=== PATIENT | male | born 1960 | race Caucasian/White ===

== ENCOUNTER 2024-07-20 18:31 | Emergency (ER) | payer SELFPAY ==
--- NOTE | ~2024-07-20 | CT_ITS ---
History: Seizure PROCEDURE: CT head without contrast. COMPARISON: None TECHNIQUE: Axial imaging of the head performed from the skull base to the vertex without IV contrast. Sagittal a nd coronal reformations obtained. DLP: 681 mGy-cm FINDINGS: The ventricles are normal in size, shape and position. There is no mass, mass effect or midline shift. There is no abnormal extra-axial fluid collection or intracranial hemorrhage. Visualized paranasal sinuses are clear. The mastoid air cells are well aerated. No acute displaced fractures within the overlying cranium. Impression: No acute intracranial hemorrhage or suspicious mass effect. Reviewed, dictated and finalized at location A. Impression: No acute intracranial hemorrhage or suspicious mass effect.
[2024-07-20 18:31] VITALS: PULSE 105; RESP 15; O2SAT 100
--- NOTE | 2024-07-20 18:37 | ECG_ITS ---
Test Date: 2024-07-20 18:47:27 Measurements Intervals [place] Rate: 95 P: 50 NV: 126 QRS: 26 QRSD: 111 T: 32 QT: 354 QTc: 445 Interpretive Statements SINUS RHYTHM POSSIBLE LEFT ATRIAL ENLARGEMENT INTRAVENTRICULAR CONDUCTION DELAY NONSPECIFIC T-WAVE ABNORMALITY- DIFFUSE LEADS BASELINE ARTIFACT- I, II, AVR BORDERLINE ECG No previous ECG available for comparison Electronically Signed On 07-20-2024 20:26:41 CDT by Aaron Lyle D.O.
[2024-07-20 18:42] LABS: Glucose Point of Care 70 mg/dl (65-105)
[2024-07-20 18:45] VITALS: O2SAT 97
[2024-07-20 18:47] VITALS: BP 166/98; PULSE 98; RESP 19; TEMP 36.8; O2SAT 96
[2024-07-20 18:59] LABS: Basophils Absolute Auto 0.1 K/mm3 (0.0-0.1); Basophils Percent Auto 0.6 % (0.2-1.2); Eosinophils Absolute Auto 0.2 K/mm3 (0-0.3); Eosinophils Percent Auto 1.8 % (0-4.4); Hematocrit 49.5 % (42.0-52.0); Hemoglobin 16.9 g/dL (14.0-18.0); Immature Granulocyte Absolute 0.07 K/mm3 (0.00-0.031); Immature Granulocyte Percent A 0.6 % (0-0.5); Lymphocytes Absolute Auto 4.18 K/mm3 (0.9-3.2); Lymphocytes Percent Auto 33.3 % (18.3-44.2); Mean Corpuscular HGB Conc 34.1 g/dl (32-36); Mean Corpuscular Hemoglobin 28.5 pg (26-34); Mean Corpuscular Volume 83.5 fl (80-100); Mean Platelet Volume 10.5 fl (7.4-10.4); Monocytes Absolute Auto 1.2 K/mm3 (0.1-0.6); Monocytes Percent Auto 9.2 % (2.6-8.5); Neutrophils Absolute Auto 6.9 K/mm3 (1.3-6.7); Neutrophils Percent Auto 54.5 % (45.5-73.1); Platelet Count Result 242 k/mm3 (150-375); Red Blood Count 5.93 M/mm3 (4.6-6.20); Red Cell Distribution Width 14.5 % (11.5-14.5); White Blood Count 12.6 K/mm3 (4.5-10.0)
[2024-07-20 19:09] LABS: Alanine Aminotransferase 20 U/L (6-50); Albumin Level 4.8 g/dL (3.5-5.1); Alkaline Phosphatase 91 U/L (38-126); Anion Gap 16 mmol/L (4-12); Aspartate Amino Transferase 27 U/L (17-59); Bilirubin,Total 0.8 mg/dL (0.2-1.3); Blood Urea Nitrogen 14 mg/dL (9-20); Calcium 9.3 mg/dL (8.4-10.2); Carbon Dioxide 21 mmol/L (22-30); Chloride 102 mmol/L (98-107); Estimated CRCL calculation 92 ml/min; Estimated Glomerular Filt Rate > 60; Glucose 71 mg/dL (65-110); Potassium 4.2 mmol/L (3.4-5.0); Sodium 139 mmol/L (137-145)
[2024-07-20 19:17] VITALS: BP 151/82; PULSE 79; RESP 18; O2SAT 97
--- NOTE | 2024-07-20 19:29 | ED.SEIZURE ---
HPI - Seizure General Chief Complaint: Seizure Stated Complaint: SEIZURE, LOW BG Time Seen by Provider: 07/20/24 19:01 History of Present Illness HPI Narrative: 64-year-old male with a past medical history including hypertension, epilepsy in childhood. Patient presents to the emergency department after having a witnessed seizure at home. Patient states he was oriented and felt like his seizure was coming on when he felt lightheaded and dizzy. Lost consciousness briefly and had generalized shaking activity reported by the and friend at bedside. No loss of continence, no tongue biting or bleeding. No head trauma. He was lowered to the ground safely and seizure lasted approximately 2 minutes with approximately 10-15 minutes of postictal phase. Regained consciousness while EMS arrived. Patient was noted to be hypoglycemic and provide oral glucose, glucose 56 for EMS, improved to 70 in the room on are Accu-Chek. Patient denies any headache, vision changes, nausea or vomiting. He states he feels like it was provoked secondary to dehydration and recent stressors including new work but denies any other symptoms or recent illnesses. His last breakthrough seizure was over 20 years ago according to the patient. Does not taking any antiepileptic medications at this time. Patient has no complaints during my initial assessment. He is moving all extremities and awake alert oriented. Related Data Allergies Allergy/AdvReac Type Severity Reaction Status Date / Time No Known Allergies Allergy Verified 08/19/17 10:53 Review of Systems Review of Systems: As reviewed above in HPI Exam Narrative: GENERAL: [Well-appearing, well-nourished, and in no acute distress.] HEAD: [Normocephalic, atraumatic.] EYES: [PERRLA and EOMI.] ENT: Nares clear, no rhinorrhea or epistaxis. Mucous membranes moist. NECK: Supple. CHEST: [Clear to auscultation. No respiratory distress.] HEART: [Regular rate and rhythm]. No murmur heard. [Normal peripheral pulses.] ABDOMEN: [Soft, nondistended], [nontender], [No rigidity or guarding] EXTREMITIES: Normal range of motion. [No edema.] SKIN: Warm, dry, no rash. NEURO: [No focal deficits]. Alert and oriented [x3.] PSYCH: [Normal mood and affect.] Course Vital Signs Vital signs: Vital Signs Pulse Rate 105 H 07/20/24 18:31 Respiratory Rate 15 07/20/24 18:31 Pulse Oximetry 100 07/20/24 18:31 Temperature 36.8 C 07/20/24 18:47 Pulse Rate 79 07/20/24 19:17 Respiratory Rate 18 07/20/24 19:17 Blood Pressure 151/82 H 07/20/24 19:17 Pulse Oximetry 97 07/20/24 19:17 Oxygen Delivery Room Air 07/20/24 18:45 MDM - Seizure MDM Narrative Medical decision making narrative: 64-year-old male with history of childhood epilepsy presenting after witnessed seizure. Seizure lasted 2 minutes with a postictal phase approximate 10-15 minutes. He regained consciousness and acting appropriately. He is as baseline mentation right now. He is complaining of some muscle cramping but no other symptoms. No head trauma. No incontinence, no tongue biting. He has normal vital signs aside from some stable hypertension. No tachycardia, fever or hypoxia. He is moving all extremities and neurologically intact. Patient feels like this could have been a breakthrough seizure secondary to new stressors in life and dehydration but he was also noted to be hypoglycemic for EMS and provided dextrose EN route. No history of diabetes or insulin dependence. Suspicion presently is for breakthrough seizure from his childhood epilepsy, triggered by potential dehydration or electrolyte deficiencies, hyperglycemia. Low suspicion for intracranial pathology such as stroke or malignancy. Workup was ordered including basic laboratory studies, CBC, CMP, Accu-Chek, CT of the head. He was placed on surveillance system monitor and pulse oximetry. Accu-Chek was low at 70. He was given D5 LR bolus and re-evaluated frequently. Patient remained hemodynamically stable without any concerns or recurrence of his seizure activity while he was here in the emergency department. His laboratory studies showed no significant concerns. CT scan without any acute intracranial findings. Discussed with the patient plan of care and he felt comfortable going home at this time and was given return precautions. Family will watch him at home and he will follow up closely with his primary doctor for discussions on either restarting his previous Dilantin therapy or other medications as needed. Medical Records Attestation: I reviewed the patient's medical records. Lab Data Attestation: I reviewed the patient's lab results. 07/20/24 18:52 07/20/24 18:52 Labs: Lab Results 07/20/24 07/20/24 Range/Units 18:38 18:52 WBC 12.6 H (4.5-10.0) K/mm3 RBC 5.93 (4.6-6.20) M/mm3 Hgb 16.9 (14.0-18.0) g/dL Hct 49.5 (42.0-52.0) % MCV 83.5 (80-100) fl MCH 28.5 (26-34) pg MCHC 34.1 (32-36) g/dl RDW 14.5 (11.5-14.5) % Plt Count 242 (150-375) k/mm3 MPV 10.5 H (7.4-10.4) fl Immature Gran % (Auto) 0.6 H (0-0.5) % Neut % (Auto) 54.5 (45.5-73.1) % Lymph % (Auto) 33.3 (18.3-44.2) % [place]ois % (Auto) 9.2 H (2.6-8.5) % Eos % (Auto) 1.8 (0-4.4) % Baso % (Auto) 0.6 (0.2-1.2) % Lymph # (Auto) 4.18 H (0.9-3.2) K/mm3 [place] # (Auto) 1.2 H (0.1-0.6) K/mm3 Eos # (Auto) 0.2 (0-0.3) K/mm3 Baso # (Auto) 0.1 (0.0-0.1) K/mm3 Abs Immat Gran (auto) 0.07 H (0.00-0.031) K/mm3 Absolute Neuts (auto) 6.9 H (1.3-6.7) K/mm3 Absolute Nucleated RBC 0.000 (0.0-0.012) K/mm3 Nucleated RBC % 0.0 (0.0-0.2) % Sodium 139 (137-145) mmol/L Potassium 4.2 (3.4-5.0) mmol/L Chloride 102 (98-107) mmol/L Carbon Dioxide 21 L (22-30) mmol/L Anion Gap 16 H (4-12) mmol/L BUN 14 (9-20) mg/dL Creatinine 1.09 (0.7-1.3) mg/dL Estim Creat Clear Calc 92 ml/min Estimated GFR > 60 (59 - ) Glucose 71 (65-110) mg/dL POC Capillary Glucose 70 (65-105) mg/dl Calcium 9.3 (8.4-10.2) mg/dL Total Bilirubin 0.8 (0.2-1.3) mg/dL AST 27 (17-59) U/L ALT 20 (6-50) U/L Alkaline Phosphatase 91 (38-126) U/L Total Protein 8.0 (6.3-8.2) g/dL Albumin 4.8 (3.5-5.1) g/dL Imaging Data Attestation: I personally reviewed and interpreted this imaging study as follows: My impression: Impressions Head CT 07/20/24 19:41 Impression: No acute intracranial hemorrhage or suspicious mass effect. Discharge Plan Discharge Clinical Impression: Breakthrough seizure, Hypoglycemia, History of epilepsy Patient Disposition: Home, Self-Care Condition: Stable Instructions: Antibiotic Form, Epilepsy (ED), Driving Restrictions (ED) Additional Instructions: Follow-up with your primary care provider for close evaluation after ER visit. If this were to recur you might benefit from either restarting your previous Dilantin therapy or other antiseizure medications as needed, but no present indication to start this. Refrain from driving or operating heavy machinery until cleared by your doctor. Return with any emergent concerns. Patient Language: Wolof Follow-up/Referrals: UNKNOWN,DOCTOR [Primary Care Provider] - Time of Disposition: 20:37
[2024-07-20] MEDS: LACTATED RINGERS 1,000 ML 999 ML IV CONT (19:41)
[2024-07-20] MEDS: DEXTROSE 5%/LACTATED RINGERS 1,000 ML 999 ML IV CONT (19:41)
--- OUTSIDE RECORDS SUMMARY | 2024-07-20 19:41 | XMS_ITS | Referral Summary ---
Author Organization [address] Address [address] [place] [address] Care Team Providers Care Coil Winder Repair Name Role Phone Alonzo Mckenzie MD Primary Care Provider [phone] Allergies No known active allergies Medications albuterol HFA (PROVENTIL HFA,VENTOLIN HFA,PROAIR HFA) 90 mcg/actuation inhaler Inhale 2 puffs 03/26/2022 Active losartan (COZAAR) 100 mg tablet Take 1 tablet (100 mg total) by mouth daily 04/26/2022 Active pravastatin (PRAVACHOL) 40 mg tablet Take 1 tablet (40 mg total) by mouth nightly 04/26/2022 Active venlafaxine XR (EFFEXOR-XR) 75 mg 24 hr capsule Take 1 capsule (75 mg total) by mouth daily 04/26/2022 Active celecoxib (CeleBREX) 200 mg capsule TAKE 1 CAPSULE(200 MG) BY MOUTH TWICE DAILY 60 capsule 2 10/16/2022 Active Active Problems Problem Noted Date Diagnosed Date Edema of right foot 07/23/2022 Foot pain, right 07/23/2022 Morbid (severe) obesity due to excess calories 0 07/23/2022 Body mass index 40.0-44.9, adult (CMS/[facility]) 07/23 Social History Tobacco Use Types Packs/Day Years Used Date Smoking Tobacco: Never Smokeless Tobacco: Never PHQ-2 Answer Date Recorded PHQ-2 Total Score (If total score is 3 or more points, staff should administer the PHQ-9) 0 07/23/2022 Sex and Gender Information Value Date Recorded Sex Assigned at Not on file Legal Sex Male 6:15 PM TOGGLER Gender Identity Not on file Sexual Orientation Not on file Last Filed Vital Signs Vital Sign Reading Time Taken Comments Blood Pressure 146/96 07/23/2022 10:41 AM CDT Pulse 74 07/23/2022 10:41 AM CDT Temperature 36.9 C (98.5 F) 06/28/2022 2:39 PM TOGGLER Respiratory Rate 16 07/23/2022 10:41 AM CDT Oxygen Saturation 97% 07/23/2022 10:41 AM CDT Inhaled Oxygen Concentration - - Weight 154 kg (339 lb 6.4 oz) 07/23/2022 10:41 A M CDT Height 188 cm (6' 2 ) 07/23/2022 10:41 AM CDT Body Mass Index 43.58 07/23/2022 10:41 AM CDT Plan of Treatment Not on file Insurance [employer] Care Teams Coil Winder Repair Relationship Specialty Start Date End Date Alonzo Mckenzie MD PCP - General Family Medicine 07/23/22
--- OUTSIDE RECORDS SUMMARY | 2024-07-20 19:41 | XMS_ITS | Encounter Summary ---
Author Organization [facility] Address [address] [place] [address] Care Team Providers Care Property Accountant Name Role Phone Unavailable Primary Care Provider Unavailabl e Encounter Details Date Type Department Care Team (Late st Contact Info) Description 12/31/1999 Outpatient Historical Division of Neurology [address] [place] [phone] Addison Simental MD [address] [facility] [address] [place] [phone] Social History Tobacco Use Types Packs/Day Years Used Date Smoking Tobacco: Never Assessed Sex and Gender Information Value Date Recorded Sex Assigned at Not on file Legal Sex 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
--- OUTSIDE RECORDS SUMMARY | 2024-07-20 19:41 | XMS_ITS | Clinical Summary ---
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
--- OUTSIDE RECORDS SUMMARY | 2024-07-20 19:41 | XMS_ITS | Encounter Summary ---
Author Organization [facility] Address [address] [place] [address] Care Team Providers Care Certified Court/Medical Interpreter Name Role Phone Unavailable Primary Care Provider Unavailabl e Encounter Details Date Type Department Care Team (Late st Contact Info) Description 08/01/1999 Outpatient Historical HIS AUDIOLOGY Addison Simental MD [address] [facility] [address] [phone] Other convulsions (Primary Dx) Social History Tobacco Use Types Packs/Day Years Used Date Smoking Tobacco: Never Assessed Sex and Gender Information Value Date Recorded Sex Assigned at Not on file Legal Sex Male 4:46 AM HUMAN RESOURCES COMMUNICATIONS MANAGER Gender Identity Not on file Sexual Orientation Not on file documented as of this encounter Plan of Treatment Not on file documented as of this encounter Visit Diagnoses Diagnosis Other convulsions- Primary documented in this encounter
--- OUTSIDE RECORDS SUMMARY | 2024-07-20 19:41 | XMS_ITS | Encounter Summary ---
Author Organization [facility] Address [address] [place] [address] Care Team Providers Care Mini Bar Attendant Name Role Phone Unavailable Primary Care Provider Unavailabl e Encounter Details Date Type Department Care Team (Late st Contact Info) Description 08/23/2001 Outpatient Historical Division of Neurology [address] [place] [phone] Addison Simental MD [address] [facility] [place] [address] [place] [phone] Social History Tobacco Use Types Packs/Day Years Used Date Smoking Tobacco: Never Assessed Sex and Gender Information Value Date Recorded Sex Assigned at Not on file Legal Sex Male 4:46 AM MARKETING ANALYTICS ANALYST Gender Identity Not on file Sexual Orientation Not on file documented as of this encounter Plan of Treatment Not on file documented as of this encounter Visit Diagnoses Not on filedocumented in this encounter
--- OUTSIDE RECORDS SUMMARY | 2024-07-20 19:41 | XMS_ITS | Clinical Summary ---
Author Organization [address] Address [address] [place] [phone] Care Team Providers Care Patch Driller Name Role Phone Alonzo Mckenzie MD Primary Care Provider [phone] Allergies No known active allergies Medications albuterol [...] 0 07/23/2022 Body mass index 40.0-44.9, adult (CMS/HCC) 07/23 Surgical History Surgery Date Site/Laterality Comments APPENDECTOMY HERNIA REPAIR Medical History Medical History Date Comments Epilepsy (HCC) Family History Medical History Relation Name Comments Diabetes Father Heart disease Father Hypertension Father Hypertension Mother Relation Name Status Comments Father Mother Social History Tobacco Use Types Packs/Day Years Used Date Smoking Tobacco: Never Smokeless Tobacco: Never PHQ-2 Answer Date Recorded PHQ-2 Total Score (If total score is 3 or more points, staff should administer the PHQ-9) 0 07/23/2022 Sex and Gender Information Value Date Recorded Sex Assigned at Not on file Legal Sex Male 6:15 PM FLOOR SCRUBBER Gender Identity Not on file Sexual Orientation Not on file Obstetrics History Last Filed Vital Signs Vital Sign Reading Time Taken Comments Blood Pressure 146/96 07/23/2022 10:41 AM CDT Pulse 74 07/23/2022 10:41 AM CDT Temperature 36.9 C (98.5 F) 06/28/2022 2:39 PM FLOOR SCRUBBER Respiratory Rate 16 07/23/2022 10:41 AM CDT Oxygen Saturation 97% 07/23/2022 10:41 AM CDT Inhaled Oxygen Concentration - - Weight 154 kg (339 lb 6.4 oz) 07/23/2022 10:41 A M CDT Height 188 cm (6' 2 ) 07/23/2022 10:41 AM CDT Body Mass Index 43.58 07/23/2022 10:41 AM CDT Plan of Treatment Health Maintenance Due Date Last Done Comments Colon Cancer Screening-Colonoscopy 1961 Prostate Cancer Screening-PSA 1961 DTaP/Tdap/Td Vaccine (1 - Tdap) 01/06/1972 Hepatitis B Screening 1979 Regular Well Visit/Exam 18-64 1979 Zoster Vaccine (1 of 2) 2011 Depression Screening 07/24/2023 07/23/2022 Influenza Vaccine (#1) 2023 Hepatitis C Screening Completed 01/09/2022 Pneumococcal vaccine <65 Aged Out No longer eligible based on patient's age to complete this topic Insurance [employer] Care Teams Patch Driller Relationship Specialty Start Date End Date Alonzo Mckenzie MD PCP - General Family Medicine 07/23/22
--- OUTSIDE RECORDS SUMMARY | 2024-07-20 19:41 | XMS_ITS | Encounter Summary ---
Author Organization [facility] Address [address] [place] [address] Care Team Providers Care Senior Accountant Cpa Name Role Phone Unavailable Primary Care Provider Unavailabl e Encounter Details Date Type Department Care Team (Latest Contact Info) Description 08/01/1999 Outpatient Historical HIS [facility] MENG Simental, Addison Padilla MD [address] [facility] [address] [address] Encounter for long-term (current) use of other medications (Primary Dx) Social History Tobacco Use Types Packs/Day Years Used Date Smoking Tobacco: Never Assessed Sex and Gender Information Value Date Recorded Sex Assigned at Not on file Legal Sex Male 4:46 AM STUDENT SERVICES ADVISOR Gender Identity Not on file Sexual Orientation Not on file documented as of this encounter Plan of Treatment Not on file documented as of this encounter Visit Diagnoses Diagnosis Encounter for long-term (current) use of other medications- Primary documented in this encounter
--- OUTSIDE RECORDS SUMMARY | 2024-07-20 19:41 | XMS_ITS | Encounter Summary ---
Author Organization [facility] Address [address] [place] [address] Care Team Providers Care Pension Examiner Name Role Phone Unavailable Primary Care Provider Unavailabl e Encounter Details Date Type Department Care Team (Late st Contact Info) Description 04/08/2004 Outpatient Historical Division of Neurology [address] [place] [phone] Addison Simental MD [address] [facility] [address] [place] [phone] Social History Tobacco Use Types Packs/Day Years Used Date Smoking Tobacco: Never Assessed Sex and Gender Information Value Date Recorded Sex Assigned at Not on file Legal Sex Male 4:46 AM PROGRAMS ASSISTANT Gender Identity Not on file Sexual Orientation Not on file documented as of this encounter Plan of Treatment Not on file documented as of this encounter Visit Diagnoses Not on filedocumented in this encounter
--- OUTSIDE RECORDS SUMMARY | 2024-07-20 19:41 | XMS_ITS | Encounter Summary ---
Author Organization [facility] Address 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
--- OUTSIDE RECORDS SUMMARY | 2024-07-20 19:41 | XMS_ITS | Encounter Summary ---
Author Organization [facility] Address [address] [place] [address] Care Team Providers Care Mobile Lounge Driver Name Role Phone Unavailable Primary Care Provider Unavailabl e Encounter Details Date Type Department Care Team (Late st Contact Info) Description 07/27/1999 Outpatient Historical HIS MRI DEPT Hola, Addison Padilla MD [address] [facility] [address] [phone] Family history of stroke (cerebrovascular) (Primary Dx) Social History Tobacco Use Types Packs/Day Years Used Date Smoking Tobacco: Never Assessed Sex and Gender Information Value Date Recorded Sex Assigned at Not on file Legal Sex Male 4:46 AM DISASTER RESPONSE DIRECTOR Gender Identity Not on file Sexual Orientation Not on file documented as of this encounter Plan of Treatment Not on file documented as of this encounter Visit Diagnoses Diagnosis Family history of stroke (cerebrovascular)- Primary documented in this encounter
--- OUTSIDE RECORDS SUMMARY | 2024-07-20 19:41 | XMS_ITS | Encounter Summary ---
Author Organization [facility] Address [address] [place] [address] Care Team Providers Care Digital Communications Manager Name Role Phone Unavailable Primary Care Provider Unavailabl e Encounter Details Date Type Department Care Team (Latest Contact Info) Description 08/23/2001 Outpatient Historical HIS [facility] Tej Colindres MD [address] [facility] [address] [place] [address] AFTERCARE EMERGENCY DISPATCH OPERATOR USE MEDICATN (Primary Dx) Social History Tobacco Use Types Packs/Day Years Used Date Smoking Tobacco: Never Assessed Sex and Gender Information Value Date Recorded Sex Assigned at Not on file Legal Sex Male 4:46 AM IDEA MAN Gender Identity Not on file Sexual Orientation Not on file documented as of this encounter Plan of Treatment Not on file documented as of this encounter Visit Diagnoses Diagnosis Encounter for long-term (current) use of other medications- Primary documented in this encounter
--- OUTSIDE RECORDS SUMMARY | 2024-07-20 19:41 | XMS_ITS | Encounter Summary ---
Author Organization [facility] Address [address] [place] [address] Care Team Providers Care Real Estate Representative Name Role Phone Unavailable Primary Care Provider Unavailabl e Encounter Details Date Type Department Care Team (Late st Contact Info) Description 09/22/2002 Outpatient Historical Division of Neurology [address] [place] [phone] Addison Simental MD [address] [facility] [address] [place] [address] Social History Tobacco Use Types Packs/Day Years Used Date Smoking Tobacco: Never Assessed Sex and Gender Information Value Date Recorded Sex Assigned at Not on file Legal Sex Male 4:46 AM SOFTWARE SOLUTIONS ARCHITECT Gender Identity Not on file Sexual Orientation Not on file documented as of this encounter Plan of Treatment Not on file documented as of this encounter Visit Diagnoses Not on filedocumented in this encounter
--- OUTSIDE RECORDS SUMMARY | 2024-07-20 19:41 | XMS_ITS | Encounter Summary ---
Author Organization [facility] Address [address] [place] [address] Care Team Providers Care Amusement Ride Operator Name Role Phone Unavailable Primary Care Provider Unavailabl e Encounter Details Date Type Department Care Team (Late st Contact Info) Description 07/22/1999 Outpatient Historical Division of Neurology [address] [place] [phone] Addison Simental MD [address] [facility] [address] [place] [phone] Social History Tobacco Use Types Packs/Day Years Used Date Smoking Tobacco: Never Assessed Sex and Gender Information Value Date Recorded Sex Assigned at Not on file Legal Sex Male 4:46 AM CITY ROUTEMAN Gender Identity Not on file Sexual Orientation Not on file documented as of this encounter Plan of Treatment Not on file documented as of this encounter Visit Diagnoses Not on filedocumented in this encounter
== END 2024-07-20 20:50 | disposition home or self-care (01) ==
PROVIDERS: Emergency Medicine; Emergency Provider Student in an Organized Health Care Education/Training Program
DX: R56.9 Unspecified convulsions (principal); E16.2 Hypoglycemia, unspecified; I10 Essential (primary) hypertension; I45.9 Conduction disorder, unspecified; R94.31 Abnormal electrocardiogram [ECG] [EKG]
CPT/HCPCS: 36415; 70450; 80053; 82948; 85025; 93005; 96360; 99284; J7120; J7121